=== PATIENT | female | born 1925 | race Caucasian/White ===

== ENCOUNTER 2017-04-09 16:55 | Emergency (ER) | payer MEDICARE, BC, MEDICAID ==
[2017-04-09 17:01] VITALS: BP 148/85
--- NOTE | 2017-04-09 17:14 | EDM.PDOC ---
ED HPI GENERAL MEDICAL PROBLEM - General Chief Complaint: General Stated Complaint: lethargy Time Seen by Provider: 04/09/17 17:07 Source of Information: Reports: EMS Notes Reviewed, Shelter Records, RN, RN Notes Reviewed History Limitations: Reports: No Limitations - History of Present Illness INITIAL COMMENTS - FREE TEXT/NARRATIVE: Patient is brought to the ED at [facility] via EMS for increase lethargy, poor PO fluid intake, failure to thrive, and increase cough. Patient seems to be a poor historian. According to [place] records, patient has been making comments about not wanting to live any more. Patient has been sleeping more than usual. Patient has been refusing some of her care at the [place]. Patient apparently had audible wheezing. VSS. Urine appeared to be concentrated with yellow mucous. Patient recently had her Zyprexa d/c'd last Friday. Onset: Today - Related Data Allergies Allergy/AdvReac Type Severity Reaction Status Date / Time latex Allergy Cannot Verified 04/09/17 17:57 Remember Penicillins Allergy Cannot Verified 04/09/17 17:57 Remember Sulfa (Sulfonamide Allergy Cannot Verified 04/09/17 17:57 Antibiotics) Remember eggs Allergy Cannot Uncoded 04/09/17 17:57 Remember Home Meds: Home Meds Levothyroxine 75 mcg PO DAILY 09/27/13 [History] Clopidogrel [Plavix] 75 mg PO DAILY 07/10/15 [History] Famotidine 20 mg PO DAILY 07/10/15 [History] Acetaminophen 650 mg PO Q4H PRN 02/22/17 [History] Acetaminophen/HYDROcodone [[place] 325-5 MG] 1 tab PO Q6H PRN 02/22/17 [History] Furosemide [Lasix] 20 mg PO DAILY 02/22/17 [History] LORazepam [Ativan] 0.5 mg PO Q6H PRN 02/22/17 [History] Polyethylene Glycol 3350 [MiraLAX] 17 gm PO DAILY 02/22/17 [History] Sennosides/Docusate Sodium [Senna-Docusate Sodium Tablet] 1 tab PO DAILY PRN [History] Sertraline [Zoloft] 25 mg PO DAILY 02/22/17 [History] Bisacodyl 5 mg PO DAILY PRN 04/09/17 [History] Nitrofurantoin Monohyd/M-Cryst [Macrobid 100 mg Capsule] 1 cap PO BID 4 Days #8 capsule 04/09/17 [Rx] Nitrofurantoin Monohyd/M-Cryst [Macrobid 100 mg Capsule] 1 cap PO BID 6 Days # 12 capsule 04/09/17 [Rx] Psyllium Husk 1 tbsp PO DAILY 04/09/17 [History] metFORMIN HCl [Metformin HCl ER] 500 mg PO DAILY 04/09/17 [History] Past Medical History HEENT History: Reports: Cataract Cardiovascular History: Reports: Heart Failure, Other (See Below) Other Cardiovascular History: irregular heartbeat Genitourinary History: Reports: Urinary Incontinence Musculoskeletal History: Reports: Osteoarthritis Neurological History: Reports: CVA, Parkinson's Endocrine/Metabolic History: Reports: Diabetes, Type II, Hypothyroidism - Past Surgical History HEENT Surgical History: Reports: Cataract Surgery GI Surgical History: Reports: Cholecystectomy Social & Family History - Tobacco Use Smoking Status *Q: Unknown Ever Smoked Years of Tobacco use: 2 Used Tobacco, but Quit: Yes Month Tobacco Last Used: unknown Second Hand Smoke Exposure: No - Alcohol Use Days Per Week of Alcohol Use: 0 - Recreational Drug Use Recreational Drug Use: No - Living Situation & Occupation Living situation: Reports: Occupation: Retired ED ROS GENERAL - Review of Systems Review Of Systems: See Below Constitutional: Reports: Fatigue. Denies: Fever, Chills, Weakness HEENT: Reports: No Symptoms Respiratory: Reports: Shortness of Breath, Wheezing, Cough. Denies: Sputum Cardiovascular: Denies: Chest Pain, Palpitations GI/Abdominal: Denies: Abdominal Pain, Nausea, Vomiting Skin: Reports: No Symptoms Neurological: Reports: Dizziness. Denies: Headache, Numbness, Paresthesia, Tingling ED EXAM, GENERAL - Physical Exam Exam: See Below Exam Limited By: No Limitations General Appearance: Alert, No Apparent Distress Respiratory/Chest: No Respiratory Distress, Wheezing (end expiratory) Cardiovascular: Normal Peripheral Pulses, Regular Rate, Rhythm Peripheral Pulses: 2+: Radial (L), Radial (R) GI/Abdominal: Normal Bowel Sounds, Soft, Non-Tender Neurological: Alert, Confused (related to dementia) Skin Exam: Warm, Dry, Intact, Normal Color, No Rash Course - Vital Signs Last Recorded V/S: Last Vital Signs Temp 35.5 C 04/09/17 17:00 Pulse 75 04/09/17 17:00 Resp 18 04/09/17 17:00 BP 148/85 H 04/09/17 17:00 Pulse Ox 97 04/09/17 17:00 - Orders/Labs/Meds Orders: Active Orders 24 hr Category Date Time Status Chest 1V Frontal [CR] Stat Exams 04/09/17 17:08 Taken Sodium Chloride 0.9% [Normal Saline] 1,000 ml Med 04/09/17 18:21 Active IV ONETIME Sodium Chloride 0.9% [Saline Flush] Med 04/09/17 18:21 Active 10 ml FLUSH ASDIRECTED PRN Peripheral IV Insertion Adult [OM.PC] Routine Oth 04/09/17 18:21 Ordered Medication Orders Sodium Chloride (Normal Saline) 1,000 mls @ 999 mls/hr IV ONETIME ONE Stop: 04/09/17 19:21 Sodium Chloride (Saline Flush) 10 ml FLUSH ASDIRECTED PRN PRN Reason: Keep Vein Open Labs: Laboratory Tests 04/09/17 04/09/17 04/09/17 Range/Units 17:20 17:20 17:48 WBC 7.4 (4.0-10.0) x10^3/uL RBC 4.75 (4.00-5.50) x10^6/uL Hgb 13.9 D (12.0-16.0) g/dL Hct 45.2 (33.0-47.0) % MCV 95.2 H (78.0-93.0) fL MCH 29.3 (26.0-32.0) pg MCHC 30.8 L (32.0-36.0) g/dL RDW Coeff of Andreina 14.3 (10.0-15.0) % Plt Count 210 (130-400) x10^3/uL Neut % (Auto) 53.4 (50.0-80.0) % Lymph % (Auto) 31.5 (25.0-50.0) % [place] % (Auto) 9.7 (2.0-11.0) % Eos % (Auto) 5.1 H (0.0-4.0) % Baso % (Auto) 0.3 (0.2-1.2) % Sodium 138 (136-145) mmol/L Potassium 3.6 (3.5-5.1) mmol/L Chloride 99 (98-107) mmol/L Carbon Dioxide 28 (21-32) mmol/L BUN 13 (7-18) mg/dL Creatinine 0.9 (0.55-1.02) mg/dL Est Cr Clr Drug Dosing TNP Estimated GFR (MDRD) 59 Glucose 222 H (74-106) mg/dL Calcium 8.6 (8.5-10.1) mg/dL Urine Color Dark yellow H (YELLOW) Urine Appearance Turbid H (CLEAR) Urine pH 5.5 (5.0-8.0) Ur Specific [place] 1.025 Urine Protein Negative (NEGATIVE) mg/dL Urine Glucose (UA) Negative (NEGATIVE) mg/dL Urine Ketones Negative (NEGATIVE) mg/dL Urine Occult Blood Trace-lysed H (NEGATIVE) Urine Nitrite Positive H (NEGATIVE) Urine Bilirubin Negative (NEGATIVE) Urine Urobilinogen 0.2 (0.2) EU/dL Ur Leukocyte Esterase Moderate H (NEGATIVE) Urine RBC 5-10 H (NOT SEEN) /HPF Urine WBC Packed (NOT SEEN) /HPF Urine WBC Clumps Few Ur Transition Epith Cell Not seen (NEGATIVE) /HPF Ur Renal Epithelial Cell Few H (NEGATIVE) /HPF Urine Bacteria Many H (NEGATIVE) /HPF Urine Mucus Moderate H (NEGATIVE) /LPF Meds: Medications Generic Name Dose Route Start Last Admin Trade Name Freq PRN Reason Stop Dose Admin Sodium Chloride 1,000 mls @ 999 mls/hr 04/09/17 18:21 Normal Saline IV 04/09/17 19:21 ONETIME ONE Sodium Chloride 10 ml 04/09/17 18:21 Saline Flush FLUSH ASDIRECTED PRN Keep Vein Open - Radiology Interpretation Free Text/Narrative:: CXR: No pneumonia or edema - see scanned report in EMR Departure - Departure Time of Disposition: 18:34 Disposition: DC/Tfer to [facility] 03 Condition: Good Clinical Impression: Urinary tract infection Qualifiers: Urinary tract infection type: acute cystitis Hematuria presence: with hematuria Qualified Code(s): N30.01 - Acute cystitis with hematuria - Discharge Information Prescriptions: Nitrofurantoin Monohyd/M-Cryst [Macrobid 100 mg Capsule] 1 cap PO BID 6 Days # 12 capsule Nitrofurantoin Monohyd/M-Cryst [Macrobid 100 mg Capsule] 1 cap PO BID 4 Days #8 capsule Instructions: Urinary Tract Infection, Adult Referrals: Maddison Delvalle DO [Primary Care Provider] - Forms: ED Department Discharge Additional Instructions: 1. Stay well hydrated and rest 2. Take antibiotics for the full coarse of 5 days, even if you are feeling better 3. May take Tylenol for any pain/discomfort 4. See your Primary as symptoms warrant 5. Call with any questions/concerns - Problem List Review Problem List Initiated/Reviewed/Updated: Yes - My Orders Last 24 Hours: My Active Orders 04/09/17 17:08 Chest 1V Frontal [CR] Stat 04/09/17 18:21 Sodium Chloride 0.9% [Normal Saline] 1,000 ml IV ONETIME Sodium Chloride 0.9% [Saline Flush] 10 ml FLUSH ASDIRECTED PRN Peripheral IV Insertion Adult [OM.PC] Routine - Assessment/Plan Last 24 Hours: My Active Orders 04/09/17 17:08 Chest 1V Frontal [CR] Stat 04/09/17 18:21 Sodium Chloride 0.9% [Normal Saline] 1,000 ml IV ONETIME Sodium Chloride 0.9% [Saline Flush] 10 ml FLUSH ASDIRECTED PRN Peripheral IV Insertion Adult [OM.PC] Routine Plan: Patient labs only show a UTI. Will give NS bolus and start patient on Macrobid 100mg PO BID for 5 days. Patient to see PCP as symptoms warrant.
[2017-04-09 17:40] LABS: CHLORIDE,CL 99 mmol/L (98-107); SODIUM,NA 138 mmol/L (136-145)
[2017-04-09] MEDS ORDERED: Sodium Chloride 0.9% 10 ML Syringe FLUSH PRN (18:21)
[2017-04-09] MEDS: Sodium Chloride 0.9% 1,000 ML IV ONE (18:40)
[2017-04-09] MEDS: Take Home: Nitrofurantoin Monohydrate/Macrocrystalline 100 MG, 2 Cap Pack PO ONE (18:42)
== END 2017-04-09 20:15 ==
LOC: VM.ED 16:55
DX: N30.01 Acute cystitis with hematuria (principal); I50.9 Heart failure, unspecified; E11.9 Type 2 diabetes mellitus without complications; E03.9 Hypothyroidism, unspecified; Z87.891 Personal history of nicotine dependence; Z79.02 Long term (current) use of antithrombotics/antiplatelets; Z79.84 Long term (current) use of oral hypoglycemic drugs; Z79.899 Other long term (current) drug therapy; Z88.0 Allergy status to penicillin; Z88.2 Allergy status to sulfonamides; Z91.012 Allergy to eggs; Z91.040 Latex allergy status
CPT/HCPCS: 36415; 71045; 80048; 81001; 85025; 96360; 99284-GF; 99285; A9270-GY; J7030

== ENCOUNTER 2017-07-05 08:57 | Inpatient (IN) | payer MEDICARE, BC, MEDICAID ==
[2017-07-05] MEDS ORDERED: Sodium Chloride 0.9% 10 ML Syringe FLUSH PRN (09:18)
--- NOTE | 2017-07-05 09:48 | EDM.PDOC ---
ED HPI GENERAL MEDICAL PROBLEM - General Chief Complaint: Respiratory Problem Source of Information: Reports: EMS, [facility] Records History Limitations: Reports: No Limitations - History of Present Illness INITIAL COMMENTS - FREE TEXT/NARRATIVE: Pt. was seen in clinic last week for possible aspiration pneumonia. Pt. was started on azithromomycin and has failed to improve. She has been experiencing increased productive cough. Pt. is non-verbal and unable to provide any medical history. Onset Date: 07/04/17 Location: Reports: Chest - Related Data Allergies Allergy/AdvReac Type Severity Reaction Status Date / Time latex Allergy Cannot Verified 04/09/17 17:57 Remember Penicillins Allergy Cannot Verified 04/09/17 17:57 Remember Sulfa (Sulfonamide Allergy Cannot Verified 04/09/17 17:57 Antibiotics) Remember eggs Allergy Cannot Uncoded 04/09/17 17:57 Remember Home Meds: Home Meds Levothyroxine 75 mcg PO DAILY 09/27/13 [History] Clopidogrel [Plavix] 75 mg PO DAILY 07/10/15 [History] Famotidine 20 mg PO DAILY 07/10/15 [History] Acetaminophen 650 mg PO Q4H PRN 02/22/17 [History] Acetaminophen/HYDROcodone [[place] 325-5 MG] 1 tab PO Q6H PRN 02/22/17 [History] Furosemide [Lasix] 20 mg PO DAILY 02/22/17 [History] LORazepam [Ativan] 0.5 mg PO Q6H PRN 02/22/17 [History] Polyethylene Glycol 3350 [MiraLAX] 17 gm PO DAILY 02/22/17 [History] Sennosides/Docusate Sodium [Senna-Docusate Sodium Tablet] 1 tab PO DAILY PRN [History] Sertraline [Zoloft] 25 mg PO DAILY 02/22/17 [History] Bisacodyl 5 mg PO DAILY PRN 04/09/17 [History] Nitrofurantoin Monohyd/M-Cryst [Macrobid 100 mg Capsule] 1 cap PO BID 4 Days #8 capsule 04/09/17 [Rx] Nitrofurantoin Monohyd/M-Cryst [Macrobid 100 mg Capsule] 1 cap PO BID 6 Days # 12 capsule 04/09/17 [Rx] Psyllium Husk 1 tbsp PO DAILY 04/09/17 [History] metFORMIN HCl [Metformin HCl ER] 500 mg PO DAILY 04/09/17 [History] Past Medical History HEENT History: Reports: Cataract Cardiovascular History: Reports: Heart Failure, Other (See Below) Other Cardiovascular History: irregular heartbeat Gastrointestinal History: Reports: Chronic Constipation, GERD, Other (See Below) Other Gastrointestinal History: dysphagia, functional intestional disorder Genitourinary History: Reports: Urinary Incontinence Musculoskeletal History: Reports: Osteoarthritis Neurological History: Reports: CVA, Parkinson's Other Neuro History: encephalopathy Psychiatric History: Reports: Dementia, OCD, Other (See Below) Other Psychiatric History: restlessness and agitation, unspecified psychosis Endocrine/Metabolic History: Reports: Diabetes, Type II, Hypothyroidism - Past Surgical History HEENT Surgical History: Reports: Cataract Surgery GI Surgical History: Reports: Cholecystectomy Social & Family History - Tobacco Use Smoking Status *Q: Unknown Ever Smoked Years of Tobacco use: 2 Used Tobacco, but Quit: Yes Month/Year Tobacco Last Used: unknown Second Hand Smoke Exposure: No - Alcohol Use Days Per Week of Alcohol Use: 0 - Recreational Drug Use Recreational Drug Use: No - Living Situation & Occupation Living situation: Reports: Occupation: Retired ED ROS GENERAL - Review of Systems Review Of Systems: Unable To Obtain ED EXAM, GENERAL - Physical Exam Exam: See Below Exam Limited By: No Limitations General Appearance: Alert, WD/WN, No Apparent Distress Eye Exam: Bilateral Eye: EOMI, Normal Fundi, Normal Inspection, PERRL Ears: Normal External Exam, Normal Canal, Hearing Grossly Normal, Normal TMs Ear Exam: Bilateral Ear: Auricle Normal, Canal Normal, TM normal Nose: Normal Inspection, Normal Mucosa, No Blood Throat/Mouth: Normal Inspection, Normal Lips, Normal Teeth, Normal Gums, Normal Oropharynx, Normal Voice, No Airway Compromise Head: Atraumatic, Normocephalic Neck: Normal Inspection, Supple, Non-Tender, Full Range of Motion Respiratory/Chest: No Respiratory Distress, No Accessory Muscle Use, Chest Non- Tender, Decreased Breath Sounds, Crackles, Wheezing Cardiovascular: Normal Peripheral Pulses, Regular Rate, Rhythm, No Edema, No Gallop, No JVD, No Murmur, No Rub GI/Abdominal: Normal Bowel Sounds, Soft, Non-Tender, No Organomegaly, No Distention, No Abnormal Bruit, No Mass (Female) Exam: Deferred Rectal (Female) Exam: Deferred Back Exam: Normal Inspection, Full Range of Motion, NT Extremities: Normal Inspection, Normal Range of Motion, Non-Tender, Normal Capillary Refill, No Pedal Edema Neurological: Alert, Oriented, CN II-XII Intact, Normal Cognition, Normal Gait, Normal Reflexes, No Motor/Sensory Deficits Psychiatric: Normal Affect, Normal Mood Skin Exam: Warm, Dry, Intact, Normal Color, No Rash Lymphatic: No Adenopathy Course - Orders/Labs/Meds Orders: Active Orders 24 hr Category Date Time Status EKG Documentation Completion [RC] STAT Care 07/05/17 09:18 Active Chest 1V Frontal [CR] Stat Exams 07/05/17 09:25 Ordered CBC WITH AUTO DIFF [HEME] Stat Lab 07/05/17 09:18 Ordered COMPREHENSIVE METABOLIC PN,CMP [CHEM] Stat Lab 07/05/17 09:18 Ordered CRP [C-REACTIVE PROTEIN] [CHEM] Stat Lab 07/05/17 09:18 Ordered CRP [C-REACTIVE PROTEIN] [CHEM] Stat Lab 07/05/17 09:23 Ordered INR,PT,PROTHROMBIN TIME [COAG] Stat Lab 07/05/17 09:18 Ordered LACTIC ACID [CHEM] Stat Lab 07/05/17 09:19 Ordered MAGNESIUM [CHEM] Stat Lab 07/05/17 09:18 Ordered PRO B-TYPE NATRIUR PEPT,BNPPRO [CHEM] Stat Lab 07/05/17 09:18 Ordered UA W/MICROSCOPIC [URIN] Stat Lab 07/05/17 09:24 Ordered Sodium Chloride 0.9% [Saline Flush] Med 07/05/17 09:18 Active 10 ml FLUSH ASDIRECTED PRN Peripheral IV Insertion Adult [OM.PC] Routine Oth 07/05/17 09:20 Ordered Medication Orders Sodium Chloride (Saline Flush) 10 ml FLUSH ASDIRECTED PRN PRN Reason: Keep Vein Open Meds: Medications Generic Name Dose Route Start Last Admin Trade Name Freq PRN Reason Stop Dose Admin Sodium Chloride 10 ml 07/05/17 09:18 Saline Flush FLUSH ASDIRECTED PRN Keep Vein Open Departure - Discharge Information Forms: ED Department Discharge - My Orders Last 24 Hours: My Active Orders 07/05/17 09:18 EKG Documentation Completion [RC] STAT CBC WITH AUTO DIFF [HEME] Stat COMPREHENSIVE METABOLIC PN,CMP [CHEM] Stat CRP [C-REACTIVE PROTEIN] [CHEM] Stat INR,PT,PROTHROMBIN TIME [COAG] Stat MAGNESIUM [CHEM] Stat PRO B-TYPE NATRIUR PEPT,BNPPRO [CHEM] Stat Sodium Chloride 0.9% [Saline Flush] 10 ml FLUSH ASDIRECTED PRN 07/05/17 09:19 LACTIC ACID [CHEM] Stat 07/05/17 09:20 Peripheral IV Insertion Adult [OM.PC] Routine 07/05/17 09:23 CRP [C-REACTIVE PROTEIN] [CHEM] Stat 07/05/17 09:24 UA W/MICROSCOPIC [URIN] Stat 07/05/17 09:25 Chest 1V Frontal [CR] Stat - Assessment/Plan Last 24 Hours: My Active Orders 07/05/17 09:18 EKG Documentation Completion [RC] STAT CBC WITH AUTO DIFF [HEME] Stat COMPREHENSIVE METABOLIC PN,CMP [CHEM] Stat CRP [C-REACTIVE PROTEIN] [CHEM] Stat INR,PT,PROTHROMBIN TIME [COAG] Stat MAGNESIUM [CHEM] Stat PRO B-TYPE NATRIUR PEPT,BNPPRO [CHEM] Stat Sodium Chloride 0.9% [Saline Flush] 10 ml FLUSH ASDIRECTED PRN 07/05/17 09:19 LACTIC ACID [CHEM] Stat 07/05/17 09:20 Peripheral IV Insertion Adult [OM.PC] Routine 07/05/17 09:23 CRP [C-REACTIVE PROTEIN] [CHEM] Stat 07/05/17 09:24 UA W/MICROSCOPIC [URIN] Stat 07/05/17 09:25 Chest 1V Frontal [CR] Stat
[2017-07-05] MEDS ORDERED: Ertapenem 1 GM in Sodium Chloride 0.9% 100 ML IV ONE (10:02)
[2017-07-05 10:11] LABS: CHLORIDE,CL 103 mmol/L (98-107); SODIUM,NA 140 mmol/L (136-145)
[2017-07-05] MEDS ORDERED: Sodium Chloride 0.9% 1,000 ML IV SCH (10:30)
[2017-07-05] MEDS ORDERED: Albuterol/Ipratropium 3.0-0.5 MG/3 ML Neb Soln NEB PRN (15:08)
[2017-07-05] MEDS ORDERED: Acetaminophen 325 MG Tab PO PRN (15:08)
--- NOTE | 2017-07-05 15:32 | PCM.HP ---
H&P History of Present Illness - General Date of Service: 07/05/17 Admit Problem/Dx: Admission Diagnosis/Problem Admission Diagnosis/Problem UTI, Urinary tract infectious disease - History of Present Illness Initial Comments - Free Text/Narative: Admission note for Dee Greenberg Chief complaint: Patient not giving any; sent from the longterm because of cough History of present illness: Dionicio is an 89-year-old resident of the [facility] She was sent to the emergency room because of offing of white sputum. She was started on Z-Rakesh knee second and Mucinex and she had failed to improve and she had wheezes productive cough. She was sent to the emergency room where she was found to have an elevated lactic acid and urinary tract infection for treatment of infection with incipient sepsis Her medical problems include Cerebral infarction Dementia: Patient can be combative and confused, she generally walks with a walker Encephalopathy Hyperlipidemia Obsessive-compulsive disorder Cataract Osteoarthritis constipation Dysphagia Hypertension GERD Hypothyroidism Parkinson's disease Type 2 diabetes Bilateral hearing loss Diet :soft diced texture nectar consistency Medications: Azithromycin 250 mg daily started on July 02 Bisacodyl 5 mg daily when necessary DuoNeb 3 times a day when necessary Famotidine 20 mg daily Glycopyrrolate 1 mg daily Lasix 20 mg daily Levothyroxine 88 g daily Metformin 500 daily MiraLAX 17 g daily Guaifenesin 600 mg twice a day Clopidogrel 75 mg daily Psyllium 1 tablespoon daily Tresiba 8 units subcutaneous daily Tylenol 325 as needed Zoloft 25 mg daily Allergies to medications penicillin, sulfa, latex Family history, social history, review of systems, unable to be obtained as patient does not want to be disturbed OBJ WEll nourished female in no acute distress lying on her right side. She refuses to be examined and says" leave me alone". The nursing teacher states the patient just finished walking over to the bathroom and toileting herself Skin: No ulcers or rashes seen Lymph: Nonpalpable in the groin or axilla HEENT: Patient refuses examination Lungs: Clear except for an occasional rhonchus Cor: S1-S2 normal without rubs, murmurs, gallops, normal sinus rhythm Abdomen: Bowel sounds active, no masses, no tenderness, no organomegaly Extremities: No clubbing, cyanosis, edema Neuro: No facial asymmetry, patient able to say leave me alone quite clearly, no focal weakness visible although patient was not very cooperative and coarse tremor seen in left arm and lip periodically Labs: White blood count 7800 hemoglobin 13.4 hematocrit 43.1 platelets 237 INR 1.0 Sodium 140 potassium 4.2 Chloride 103 CO2 27 BUN 13 creatinine 0.8 nl Liver function tests Lactic acid 2.4 [id number] UA: Positive nitrates, 30-40 WBCs with clumps, many bacteria IMP: 1. UTI: Patient was given a dose of Invanz in the emergency room, blood cultures were not done but ; cover with Levaquin, monitor vital signs and lactate levels carefully 2. Diabetes mellitus: Continue with Tresiba, hold metformin for now view of lactate elevation 3. Dementia: We'll concentrate on trying to get her to take by mouth, hold off on any of her oral pills until we can see how operative she will be intake warped if she will be to take him her oral pills 3. ? respiratory infection: supervisor coke handling and lung exam unremarkable; levaquin should also cover a longterm acquired infection; continue prn nebs. 4. Prolonged QT- d/c azithromycin - Related Data Allergies/Adverse Reactions: Allergies Allergy/AdvReac Type Severity Reaction Status Date / Time latex Allergy Cannot Verified 07/05/17 11:00 Remember Penicillins Allergy Cannot Verified 07/05/17 11:00 Remember Sulfa (Sulfonamide Allergy Cannot Verified 07/05/17 11:00 Antibiotics) Remember eggs Allergy Cannot Uncoded 04/09/17 17:57 Remember Home Medications: Home Meds Clopidogrel [Plavix] 75 mg PO DAILY 07/10/15 [History] Famotidine 20 mg PO DAILY 07/10/15 [History] Acetaminophen 650 mg PO Q4H PRN 02/22/17 [History] Furosemide [Lasix] 20 mg PO DAILY 02/22/17 [History] Polyethylene Glycol 3350 [MiraLAX] 17 gm PO DAILY 02/22/17 [History] Sertraline [Zoloft] 25 mg PO DAILY 02/22/17 [History] Bisacodyl 5 mg PO DAILY PRN 04/09/17 [History] Psyllium Husk 1 tbsp PO DAILY 04/09/17 [History] metFORMIN HCl [Metformin HCl ER] 500 mg PO DAILY 04/09/17 [History] Albuterol/Ipratropium [DuoNeb 3.0-0.5 MG/3 ML] 3 ml IH TID 07/05/17 [History] Albuterol/Ipratropium [DuoNeb 3.0-0.5 MG/3 ML] 3 ml IH TID PRN 07/05/17 [History ] Azithromycin [IMW: Azithromycin] 250 mg PO DAILY 07/05/17 [History] Glycopyrrolate [Robinul] 1 mg PO TID PRN 07/05/17 [History] Guaifenesin/Pseudoephedrne HCl [Mucinex D ER Tablet] 600 mg PO BID 07/05/17 [ History] Insulin Degludec [Tresiba Flextouch U-100] 8 unit SQ DAILY 07/05/17 [History] Levothyroxine [Synthroid] 88 mcg PO ACBREAKFAST 07/05/17 [History] Past Medical History HEENT History: Reports: Cataract, Hard of Hearing, Other (See Below) Other HEENT History: dysphagia Cardiovascular History: Reports: Heart Failure, High Cholesterol, Hypertension, Other (See Below) Other Cardiovascular History: irregular heartbeat Gastrointestinal History: Reports: Chronic Constipation, GERD, Other (See Below) Other Gastrointestinal History: dysphagia, functional intestional disorder Genitourinary History: Reports: Urinary Incontinence Musculoskeletal History: Reports: Osteoarthritis Neurological History: Reports: CVA, Parkinson's Other Neuro History: encephalopathy Psychiatric History: Reports: Dementia, OCD, Other (See Below) Other Psychiatric History: restlessness and agitation, unspecified psychosis Endocrine/Metabolic History: Reports: Diabetes, Type II, Hypothyroidism - Past Surgical History HEENT Surgical History: Reports: Cataract Surgery GI Surgical History: Reports: Cholecystectomy Social & Family History - Family History Family Medical History: Noncontributory - Tobacco Use Smoking Status *Q: Never Smoker Years of Tobacco use: 2 Used Tobacco, but Quit: Yes Month/Year Tobacco Last Used: unknown Second Hand Smoke Exposure: No - Caffeine Use Caffeine Use: Reports: Coffee - Alcohol Use Days Per Week of Alcohol Use: 0 - Recreational Drug Use Recreational Drug Use: No - Living Situation & Occupation Living situation: Reports: Occupation: Retired H&P Review of Systems - Review of Systems: Review Of Systems: Unable To Obtain Exam - Exam Exam: See Below - Vital Signs Vital Signs: Last Vital Signs Temp 98.7 F 05/05/18 14:00 Pulse 70 07/05/17 14:00 Resp 20 07/05/17 14:00 BP 106/49 L 07/05/17 14:00 Pulse Ox 97 07/05/17 14:00 Weight: 170 lb - Patient Data Lab Results Last 24 hrs: Laboratory Results - last 24 hr 07/05/17 07/05/17 07/05/17 Range/Units 09:25 09:25 09:25 WBC 7.8 (4.0-10.0) x10^3/uL RBC 4.58 (4.00-5.50) x10^6/uL Hgb 13.4 (12.0-16.0) g/dL Hct 43.1 (33.0-47.0) % MCV 94.1 H (78.0-93.0) fL MCH 29.3 (26.0-32.0) pg MCHC 31.1 L (32.0-36.0) g/dL RDW Coeff of Andreina 14.6 (10.0-15.0) % Plt Count 237 (130-400) x10^3/uL Neut % (Auto) 44.6 L (50.0-80.0) % Lymph % (Auto) 41.4 (25.0-50.0) % [place] % (Auto) 8.2 (2.0-11.0) % Eos % (Auto) 5.5 H (0.0-4.0) % Baso % (Auto) 0.3 (0.2-1.2) % PT 10.0 (9.6-11.4) SEC INR 1.0 L (2.0-3.5) Sodium 140 (136-145) mmol/L Potassium 4.2 (3.5-5.1) mmol/L Chloride 103 (98-107) mmol/L Carbon Dioxide 27 (21-32) mmol/L Anion Gap 14.2 (10-20) mmol/L BUN 13 (7-18) mg/dL Creatinine 0.8 (0.55-1.02) mg/dL Est Cr Clr Drug Dosing TNP Estimated GFR (MDRD) > 60 Glucose 131 H (74-106) mg/dL Lactic Acid (0.4-2.0) mmol/L Calcium 9.1 (8.5-10.1) mg/dL Corrected Calcium 9.58 (8.5-10.1) mg/dL Magnesium 1.9 (1.8-2.4) mg/dL Total Bilirubin 0.4 (0.2-1.0) mg/dL AST 18 (15-37) U/L ALT 22 (14-59) U/L Alkaline Phosphatase 98 (46-116) U/L C-Reactive Protein < 0.2 (<=0.9) mg/dL NT-Pro-B Natriuret Pep 252 (<=450) pg/mL Total Protein 7.4 (6.4-8.2) g/dL Albumin 3.4 (3.4-5.0) g/dL Globulin 4.0 Albumin/Globulin Ratio 0.85 Urine Color (YELLOW) Urine Appearance (CLEAR) Urine pH (5.0-8.0) Ur Specific Harwood Urine Protein (NEGATIVE) mg/dL Urine Glucose (UA) (NEGATIVE) mg/dL Urine Ketones (NEGATIVE) mg/dL Urine Occult Blood (NEGATIVE) Urine Nitrite (NEGATIVE) Urine Bilirubin (NEGATIVE) Urine Urobilinogen (0.2) EU/dL Ur Leukocyte Esterase (NEGATIVE) Urine RBC (NOT SEEN) /HPF Urine WBC (NOT SEEN) /HPF Urine WBC Clumps Ur Squamous Epith Cells (NEGATIVE) /HPF Urine Bacteria (NEGATIVE) /HPF Urine Mucus (NEGATIVE) /LPF 07/05/17 07/05/17 Range/Units 09:25 09:40 WBC (4.0-10.0) x10^3/uL RBC (4.00-5.50) x10^6/uL Hgb (12.0-16.0) g/dL Hct (33.0-47.0) % MCV (78.0-93.0) fL MCH (26.0-32.0) pg MCHC (32.0-36.0) g/dL RDW Coeff of Andreina (10.0-15.0) % Plt Count (130-400) x10^3/uL Neut % (Auto) (50.0-80.0) % Lymph % (Auto) (25.0-50.0) % [place] % (Auto) (2.0-11.0) % Eos % (Auto) (0.0-4.0) % Baso % (Auto) (0.2-1.2) % PT (9.6-11.4) SEC INR (2.0-3.5) Sodium (136-145) mmol/L Potassium (3.5-5.1) mmol/L Chloride (98-107) mmol/L Carbon Dioxide (21-32) mmol/L Anion Gap (10-20) mmol/L BUN (7-18) mg/dL Creatinine (0.55-1.02) mg/dL Est Cr Clr Drug Dosing Estimated GFR (MDRD) Glucose (74-106) mg/dL Lactic Acid 2.4 H* (0.4-2.0) mmol/L Calcium (8.5-10.1) mg/dL Corrected Calcium (8.5-10.1) mg/dL Magnesium (1.8-2.4) mg/dL Total Bilirubin (0.2-1.0) mg/dL AST (15-37) U/L ALT (14-59) U/L Alkaline Phosphatase (46-116) U/L C-Reactive Protein (<=0.9) mg/dL NT-Pro-B Natriuret Pep (<=450) pg/mL Total Protein (6.4-8.2) g/dL Albumin (3.4-5.0) g/dL Globulin Albumin/Globulin Ratio Urine Color Dark yellow H (YELLOW) Urine Appearance Turbid H (CLEAR) Urine pH 5.5 (5.0-8.0) Ur Specific Harwood 1.020 Urine Protein Negative (NEGATIVE) mg/dL Urine Glucose (UA) Negative (NEGATIVE) mg/dL Urine Ketones Negative (NEGATIVE) mg/dL Urine Occult Blood Trace-intact H (NEGATIVE) Urine Nitrite Positive H (NEGATIVE) Urine Bilirubin Negative (NEGATIVE) Urine Urobilinogen 0.2 (0.2) EU/dL Ur Leukocyte Esterase Small H (NEGATIVE) Urine RBC 0-5 (NOT SEEN) /HPF Urine WBC 30-40 H (NOT SEEN) /HPF Urine WBC Clumps Moderate Ur Squamous Epith Cells Rare (NEGATIVE) /HPF Urine Bacteria Many H (NEGATIVE) /HPF Urine Mucus Rare H (NEGATIVE) /LPF Result Diagrams: 07/05/17 09:25 07/05/17 09:25 EKG INTERPRETATION Rhythm: Other (nsr, prolonged qt) - Problem List (1) Prolonged QT interval SNOMED Code(s): 127054861 ICD Code: R94.31 - ABNORMAL ELECTROCARDIOGRAM [ECG] [EKG] Status: Acute Current Visit: Yes (2) Lactic acid acidosis SNOMED Code(s): 85710605 ICD Code: E87.2 - ACIDOSIS Status: Acute Current Visit: Yes Problem List Initiated/Reviewed/Updated: Yes Orders Last 24hrs: Active Orders 24 hr Category Date Time Status Patient Status [ADT] Routine ADT 07/05/17 10:35 Active Patient Status [ADT] Routine ADT 07/05/17 14:35 Active Oxygen Therapy [RC] PRN Care 07/05/17 14:35 Active VTE/DVT Education [RC] PER UNIT ROUTINE Care 07/05/17 14:35 Active Vital Signs [RC] Q4H Care 07/05/17 14:35 Active Chest 1V Frontal [CR] Stat Exams 07/05/17 09:25 Taken CULTURE MRSA SURVEY [RM] Routine Lab 07/05/17 11:30 Received CULTURE URINE [RM] Routine Lab 07/05/17 10:30 Received UA W/MICROSCOPIC [URIN] Stat Lab 07/05/17 09:40 Ordered Acetaminophen [Tylenol] Med 07/05/17 15:08 Ordered 650 mg PO Q4H PRN Albuterol/Ipratropium [DuoNeb 3.0-0.5 MG/3 ML] Med 07/05/17 15:08 Ordered 3 ml NEB TID PRN Clopidogrel [Plavix] Med 07/06/17 08:00 Ordered 75 mg PO DAILY Levofloxacin/Dextrose 5%-Water [Levaquin in D5W 500 MG/ Med 07/05/17 15:15 Ordered 100 ML] 500 mg Premix Bag 1 bag IV Q24H Levothyroxine [Synthroid] Med 07/06/17 07:00 Ordered 88 mcg PO ACBREAKFAST Sertraline [Zoloft] Med 07/06/17 08:00 Ordered 25 mg PO DAILY Sodium Chloride 0.9% [Normal Saline] 1,000 ml Med 07/05/17 10:30 Active IV ASDIRECTED Sodium Chloride 0.9% [Saline Flush] Med 07/05/17 09:18 Active 10 ml FLUSH ASDIRECTED PRN Peripheral IV Insertion Adult [OM.PC] Routine Oth 07/05/17 09:20 Ordered Resuscitation Status Routine Resus Stat 07/05/17 14:35 Ordered Medication Orders Acetaminophen (Tylenol) 650 mg PO Q4H PRN PRN Reason: Pain/Fever Albuterol/Ipratropium (Duoneb 3.0-0.5 Mg/3 Ml) 3 ml NEB TID PRN PRN Reason: Dyspnea Clopidogrel Bisulfate (Plavix) 75 mg PO DAILY [facility] Sodium Chloride (Normal Saline) 1,000 mls @ 100 mls/hr IV ASDIRECTED [facility] Last Admin: 07/05/17 10:28 Dose: 100 mls/hr Levofloxacin/Dextrose 500 mg/ (Premix) 100 mls @ 100 mls/hr IV Q24H [facility] Levothyroxine Sodium (Synthroid) 88 mcg PO ACBREAKFAST [facility] Sertraline HCl (Zoloft) 25 mg PO DAILY [facility] Sodium Chloride (Saline Flush) 10 ml FLUSH ASDIRECTED PRN PRN Reason: Keep Vein Open
[2017-07-05] MEDS ORDERED: Levofloxacin/Dextrose 5%-Water 500 MG in Premix Bag 1 BAG IV SCH (16:00)
[2017-07-05] MEDS ORDERED: Dextrose 5%-0.45% NaCl 1,000 ML IV SCH (16:15)
[2017-07-05] MEDS ORDERED: Enoxaparin 30 MG/0.3 ML Syringe SUBCUT SCH (19:30)
[2017-07-05] MEDS: INSULIN DEGLUDEC SQ SCH (20:42)
[2017-07-06] MEDS: Levothyroxine 88 MCG Tab PO SCH ×2 (06:22→09:15)
[2017-07-06] MEDS: Clopidogrel 75 MG Tab PO SCH (09:15)
[2017-07-06] MEDS: Sertraline 25 MG Tab PO SCH (09:15)
--- NOTE | 2017-07-06 10:46 | PCM.PN ---
- General Info Date of Service: 07/06/17 Subjective Update: Hospital day 2 Patient has no complaints today Nurses report that she has been able to go to bathroom with assistance, she is eating some. She has refused pills and refused Accu-Cheks - Patient Data Vitals - Most Recent: Last Vital Signs Temp 98.6 F 07/06/17 09:27 Pulse 70 07/06/17 09:27 Resp 20 07/06/17 09:27 BP 125/75 07/06/17 09:27 Pulse Ox 95 07/06/17 09:27 Weight - Most Recent: 175 lb 8 oz I&O - Last 24 Hours: Intake & Output 07/05/17 07/06/17 07/06/17 22:59 06:59 14:59 Intake Total 604 810 120 Output Total 400 Balance 604 410 120 Lab Results Last 24 Hours: Laboratory Results - last 24 hr 07/05/17 07/06/17 07/06/17 Range/Units 20:28 07:55 07:55 WBC 6.6 (4.0-10.0) x10^3/uL RBC 4.63 (4.00-5.50) x10^6/uL Hgb 13.7 (12.0-16.0) g/dL Hct 43.9 (33.0-47.0) % MCV 94.8 H (78.0-93.0) fL MCH 29.6 (26.0-32.0) pg MCHC 31.2 L (32.0-36.0) g/dL RDW Coeff of Andreina 14.6 (10.0-15.0) % Plt Count 192 (130-400) x10^3/uL POC Glucose 110 H (74-106) mg/dL Lactic Acid 0.9 (0.4-2.0) mmol/L Med Orders - Current: Current Medications Acetaminophen (Tylenol) 650 mg PO Q4H PRN PRN Reason: Pain/Fever Albuterol/Ipratropium (Duoneb 3.0-0.5 Mg/3 Ml) 3 ml NEB TID PRN PRN Reason: Dyspnea Clopidogrel Bisulfate (Plavix) 75 mg PO DAILY [facility] Last Admin: 07/06/17 09:15 Dose: 75 mg Enoxaparin Sodium (Lovenox) 30 mg SUBCUT Q24H [facility] Last Admin: 07/05/17 20:30 Dose: 30 mg Dextrose/Sodium Chloride (Dextrose 5%-1/2 Ns) 1,000 mls @ 50 mls/hr IV ASDIRECTED [facility] Last Admin: 07/06/17 03:18 Dose: 50 mls/hr Levofloxacin/Dextrose 250 mg/ (Premix) 50 mls @ 50 mls/hr IV Q24H [facility] Levothyroxine Sodium (Synthroid) 88 mcg PO ACBREAKFAST [facility] Last Admin: 07/06/17 09:15 Dose: 88 mcg Insulin Degludec ( Tresiba Flextouch U- 100) Pen Own Med 0 unit SQ BEDTIME [facility] Last Admin: 07/05/17 20:42 Dose: Not Given Sertraline HCl (Zoloft) 25 mg PO DAILY [facility] Last Admin: 07/06/17 09:15 Dose: 25 mg Discontinued Medications Ertapenem 1 gm/ Sodium (Chloride) 100 mls @ 200 mls/hr IV ONETIME ONE Stop: 07/05/17 10:31 Last Admin: 07/05/17 10:05 Dose: 200 mls/hr Sodium Chloride (Normal Saline) 1,000 mls @ 100 mls/hr IV ASDIRECTED [facility] Last Admin: 07/05/17 10:28 Dose: 100 mls/hr Levofloxacin/Dextrose 500 mg/ (Premix) 100 mls @ 100 mls/hr IV Q24H [facility] Last Admin: 07/05/17 15:43 Dose: 100 mls/hr Sodium Chloride (Saline Flush) 10 ml FLUSH ASDIRECTED PRN PRN Reason: Keep Vein Open - Exam General: Alert Lungs: Rhonchi, Wheezing (She has diffuse rhonchi and some wheezing today) Cardiovascular: Regular Rate GI/Abdominal Exam: Normal Bowel Sounds, Soft, Non-Tender Extremities: No Pedal Edema (Patient has been afebrile overnight) - Problem List & Annotations (1) Prolonged QT interval SNOMED Code(s): 777760522 Code(s): R94.31 - ABNORMAL ELECTROCARDIOGRAM [ECG] [EKG] Status: Acute Current Visit: Yes (2) Lactic acid acidosis SNOMED Code(s): 37348741 Code(s): E87.2 - ACIDOSIS Status: Acute Current Visit: Yes - Problem List Review Problem List Initiated/Reviewed/Updated: Yes - My Orders Last 24 Hours: My Active Orders 07/05/17 10:30 CULTURE URINE [RM] Routine 07/05/17 11:30 CULTURE MRSA SURVEY [RM] Routine 07/05/17 14:35 Patient Status [ADT] Routine Oxygen Therapy [RC] PRN VTE/DVT Education [RC] PER UNIT ROUTINE Vital Signs [RC] 02,06,10,14,18,22 Resuscitation Status Routine 07/05/17 15:08 Acetaminophen [Tylenol] 650 mg PO Q4H PRN Albuterol/Ipratropium [DuoNeb 3.0-0.5 MG/3 ML] 3 ml NEB TID PRN 07/05/17 16:15 Dextrose 5%-0.45% NaCl [Dextrose 5%-1/2 NS] 1,000 ml IV ASDIRECTED 07/05/17 18:43 Accu Check [Blood Glucose Check, Bedside] [RC] QIDACANDBED 07/05/17 19:19 Bedrest Bathroom Privileges [RC] ASDIRECTED Up to Chair [RC] ASDIRECTED 07/05/17 19:30 Enoxaparin [Lovenox] 30 mg SUBCUT Q24H 07/05/17 20:00 Insulin Degludec [Tresiba Flextouch U-100] 0 unit SQ BEDTIME 07/06/17 07:00 Levothyroxine [Synthroid] 88 mcg PO ACBREAKFAST 07/06/17 08:00 Clopidogrel [Plavix] 75 mg PO DAILY Sertraline [Zoloft] 25 mg PO DAILY 07/06/17 16:00 Levofloxacin/Dextrose 5%-Water [Levaquin in D5W 250 MG/50 ML] 250 mg Premix Bag 1 bag IV Q24H 07/06/17 Breakfast Pureed Diet [DIET] Thickened Liquids [DIET] 07/09/17 07:00 CBC W/O DIFF,HEMOGRAM [HEME] Q3D 07/12/17 07:00 CBC W/O DIFF,HEMOGRAM [HEME] Q3D 07/15/17 07:00 CBC W/O DIFF,HEMOGRAM [HEME] Q3D 07/18/17 07:00 CBC W/O DIFF,HEMOGRAM [HEME] Q3D 07/21/17 07:00 CBC W/O DIFF,HEMOGRAM [HEME] Q3D 07/24/17 07:00 CBC W/O DIFF,HEMOGRAM [HEME] Q3D - Assessment Assessment:: 1. UTI: Patient has been afebrile, continue Levaquin 2. Elevated lactic acid: Resolved 3. Diabetes mellitus: Patient hasn't had any hypoglycemia however she has declined Accu-Cheks, will continue the IV while she is not eating well now 4. Poor oral intake: Patient is not taking by mouth well, we'll continue IV for 24 hours 5. Question of pulmonary infection: Restart DuoNeb's, continue Levaquin
[2017-07-06] MEDS ORDERED: Levofloxacin/Dextrose 5%-Water 250 MG in Premix Bag 1 BAG IV SCH (16:00)
[2017-07-06] MEDS: INSULIN DEGLUDEC SQ SCH (19:25)
[2017-07-06] MEDS ORDERED: Enoxaparin 30 MG/0.3 ML Syringe SUBCUT SCH (20:00)
[2017-07-06] MEDS ORDERED: LORazepam 0.5 MG Tab PO ONE (21:34)
[2017-07-07] MEDS ORDERED: LORazepam 0.5 MG Tab PO ONE ×2 (00:17→00:19)
[2017-07-07] MEDS ORDERED: Haloperidol Lactate 5 MG/ML SDV IM ONE (01:26)
--- NOTE | 2017-07-07 09:00 | DISCH ---
PRIMARY DISCHARGE DIAGNOSES: 1. A gram-negative urinary tract infection, final culture pending. 2. Concern for aspiration, but no infiltrates on x-ray. 3. 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 4. Dementia with behavioral disturbance. 5. Lactic acidosis, resolved. 6. Diabetes, on metformin. 7. Previous history of stroke. 8. History of hyperlipidemia. 9. Obsessive compulsive disorder. 10.Gastroesophageal reflux disease. 11.Essential hypertension. 12.Dysphagia. 13.Constipation. 14.Osteoarthritis. 15.Parkinson disease. 16.Hypothyroidism. REASON FOR ADMISSION: On the date of admission, this 89-year-old female, [facility] was brought into the ER because of increased productive cough, not feeling well. She had been on Zithromax since 07/02. Fevers were not recorded during her stay. On the morning of discharge, she did report to having some chills, but otherwise stated she was not coughing. She was not short of breath. She denied any abdominal pain. She wanted to be left alone. White count was not elevated. Urine was positive. She was started on Levaquin, which she tolerated. She was given a dose IV, but switched over to oral for discharge. Otherwise, she did receive a dose of Ativan during the night as well as Haldol due to agitation. DISCHARGE PLANS AND INSTRUCTIONS: She is going to [facility] for further cares. We will stop her metformin due to the lactic acidosis. We will do q.i.d. Accu-Chek's per protocol and fax me for further medication adjustments. She will be on Levaquin for 4 more doses with the next dose being today. Otherwise on discharge, the patient's exam showed a temperature 98, pulse 84, blood pressure 147/79, respiratory rate 18, O2 at 93 on room air. In general, she is in no acute distress. Heart is regular rate and rhythm. Exam was difficult due to patient cooperation, but her lungs overall were clear to auscultation. Abdomen nontender, nondistended. Extremities are warm and dry, no edema. Mental status; she was disoriented, but she was able to answer all questions and elaborate on things like stating she had chills and had not coughed yet today. Otherwise, lab work on discharge did show white count normal yesterday at 6.6. Blood sugars were in the 110-175 range. Lactic acid was normal at 0.9 yesterday. MKA: 07/07/2017 08:13:49 MODL: 07/07/2017 08:56:14 /[id number] MTDD
[2017-07-07 09:41] VITALS: BP 138/74
[2017-07-07] MEDS: Levothyroxine 88 MCG Tab PO SCH (10:59)
[2017-07-07] MEDS: Clopidogrel 75 MG Tab PO SCH (10:59)
[2017-07-07] MEDS: Sertraline 25 MG Tab PO SCH (10:59)
[2017-07-07] MEDS ORDERED: Levofloxacin 250 MG Tab PO SCH (16:00)
== END 2017-07-07 14:00 | DRG 690 ==
LOC: VM.ED 08:57 → VM.MS 10:35
PROVIDERS: ADMIT Internal Medicine; ATTEND Internal Medicine
DX: R05 Cough (principal); N39.0 Urinary tract infection, site not specified; F03.91 Unspecified dementia, unspecified severity, with behavioral disturbance; E87.2 Acidosis; I50.9 Heart failure, unspecified; K59.09 Other constipation; K21.9 Gastro-esophageal reflux disease without esophagitis; R13.10 Dysphagia, unspecified; K59.9 Functional intestinal disorder, unspecified; F03.90 Unspecified dementia, unspecified severity, without behavioral disturbance, psychotic disturbance, mood disturbance, and anxiety; R32 Unspecified urinary incontinence; M19.90 Unspecified osteoarthritis, unspecified site; G20 Parkinson's disease; F42.9 Obsessive-compulsive disorder, unspecified; E11.9 Type 2 diabetes mellitus without complications; E03.9 Hypothyroidism, unspecified; E78.5 Hyperlipidemia, unspecified; H91.93 Unspecified hearing loss, bilateral; I45.81 Long QT syndrome; B96.89 Other specified bacterial agents as the cause of diseases classified elsewhere; Z22.322 Carrier or suspected carrier of Methicillin resistant Staphylococcus aureus; Z90.49 Acquired absence of other specified parts of digestive tract; Z88.0 Allergy status to penicillin; Z88.2 Allergy status to sulfonamides; Z91.012 Allergy to eggs; Z91.040 Latex allergy status; Z79.84 Long term (current) use of oral hypoglycemic drugs; Z86.73 Personal history of transient ischemic attack (TIA), and cerebral infarction without residual deficits; Z79.02 Long term (current) use of antithrombotics/antiplatelets; Z79.899 Other long term (current) drug therapy; Z87.891 Personal history of nicotine dependence
CPT/HCPCS: 36415; 71045; 80053; 81001; 82962; 83605; 83735; 83880; 85025; 85027; 85610; 86140; 87086; 87088; 87186; 93005; 94760; 96365; 99285; A9270-GY; J1335; J1630; J1650; J1956; J7030; J7042; J7050